=== PATIENT | female | born 1960 | race Caucasian/White ===

== ENCOUNTER → 2016-03-04 | Outpatient (CLI) | payer BC ==
--- NOTE | 2016-03-04 13:57 | RADRPT ---
PROCEDURE: XR bilateral knees. CLINICAL INDICATION: Knee pain TECHNIQUE: AP weightbearing, PA weightbearing, lateral weight bearing and sunrise views are availa ble for review. COMPARISON: None available FINDINGS: Right knee: There is severe osteoarthrosis involving the right medial tibial femoral compartment, moderate osteo arthrosis involving the patellofemoral compartment and mild osteoarthrosis involving the lateral tib io-femoral compartment. This is associated with joint space narrowing, subchondral sclerosis and ost eophytosis. Left knee: There is severe osteoarthrosis involving the left medial tibial femoral compartment, moderate osteoa rthrosis involving the patellofemoral compartment and mild osteoarthrosis involving the lateral tibi o-femoral compartment. This is associated with joint space narrowing, subchondral sclerosis and oste ophytosis. There is otherwise normal mineralization, architecture and alignment. No fractures are identified. No osseous lesions are identified. The soft tissues are unremarkable. IMPRESSION: Severe osteoarthrosis involving the right medial tibial femoral compartment, moderate osteoarthrosis involving the patellofemoral compartment and mild osteoarthrosis involving the lateral tibio-femora l compartment. Severe osteoarthrosis involving the left medial tibial femoral compartment, moderate osteoarthrosis involving the patellofemoral compartment and mild osteoarthrosis involving the lateral tibio-femoral compartment. RPTAT: HGDB .Chaz Godoy MD, Date Time Electronically viewed and signed by .Chaz Godoy MD, on 03/04/2016 13:57 .B/
== END | disposition home or self-care (01) ==
LOC: HKI 13:33
PROVIDERS: ATTEND Orthopaedic Surgery
DX: M17.0 Bilateral primary osteoarthritis of knee (principal); M25.561 Pain in right knee; M25.562 Pain in left knee
CPT/HCPCS: 73564; G0463

== ENCOUNTER → 2016-03-28 | Outpatient (CLI) | payer BC ==
--- NOTE | 2016-03-29 05:57 | HKNOTE ---
DATE OF SERVICE: 03/28/2016 INTERVAL HISTORY: The patient presents today for a followup evaluation on her right knee. She is complaining of a soreness to the right knee, predominantly after exercising and training her dogs. She denies any recurrent fall or injury. She would like to proceed with an Orthovisc injection and is here today for her first injection. PHYSICAL EXAMINATION: On exam today she is alert and oriented x4, and in no acute distress. She walks with an antalgic gait. Exam of the right knee demonstrates ROM to be 10-110 degrees. She is unable to fully straighten the knee. She does have 2+ patellofemoral crepitus. Varus and valgus forces are stable. There is no effusion. Compartments are soft. No erythema or warmth noted. She is neurovascularly intact distally. IMAGING: None done today. ASSESSMENT: Right knee osteoarthritis. PLAN: 1. Orthovisc injection #1 given today to the right knee. 2. Tylenol as needed for pain. 3. She inquired about physical therapy. I advised her she should hold off until she finishes her Orthovisc series. 4. Follow up next week for her second injection. PROCEDURE NOTE: The procedure was fully explained to the patient. Informed consent was obtained prior to the start of the procedure. The area was prepped and draped in sterile fashion using betadine. The skin was anesthetized with ethyl chloride and a 22 gauge needle was injected into the superiolateral aspect of the right knee and 2 mL of Orthovisc was injected. A sterile dressing was applied. The patient tolerated the procedure well. All questions and concerns were addressed at the time of the procedure. Dictated By: CESAR HERNANDEZ/LISA Conf#: [id number] DID#: [id number] LUIS ANTONIO
== END | disposition home or self-care (01) ==
LOC: HKI 08:51
PROVIDERS: ATTEND Orthopaedic Surgery
DX: M17.11 Unilateral primary osteoarthritis, right knee (principal)
CPT/HCPCS: 20610; G0463

== ENCOUNTER → 2016-04-04 | Outpatient (CLI) | payer BC ==
--- NOTE | 2016-04-04 22:09 | HKNOTE ---
DATE OF SERVICE: 04/04/2016 INTERVAL HISTORY: The patient presents today for a followup evaluation on her right knee. She is also requesting an Orthovisc injection to her left knee. She had no adverse reactions from the first injection. She denies any fever or chills. No erythema or warmth. She has not felt much improvement at this point yet, however, tolerated the injection well. She presents today for her second Orthovisc injection to her right knee and first Orthovisc injection to her left knee. PHYSICAL EXAMINATION: On exam today she is alert and oriented x4, in no acute distress. Exam of bilateral knees demonstrates no erythema or warmth. There are no effusions. Varus and valgus forces are stable. There is minimal soft tissue swelling. Neurovascular status is intact distally. IMAGING: None done today. ASSESSMENT: Bilateral knee osteoarthritis. PLAN: The patient had her second Orthovisc injection to her right knee done today. Additionally, she began the left knee series today and underwent her first left knee injection. She tolerated the procedure well. She will follow up next week for another series of injections. I advised the patient to ice the knees and modify her activity today. PROCEDURE NOTE: The procedure was fully explained to the patient and informed consent was obtained prior to the start of the procedure. The knees were prepped and draped in sterile fashion using betadine. The skin was anesthetized using ethyl chloride and a 22-guage needle was injected into the superolateral aspect of the right and left knees. Then 2 mL of Orthovisc was injected into both knees. Sterile dressing was then applied. The patient tolerated the procedure well. All questions and concerns were addressed at the time of the procedure. Dictated By: CESAR HERNANDEZ/LISA Conf#: [id number] DID#: [id number] MTDD
== END | disposition home or self-care (01) ==
LOC: HKI 08:54
PROVIDERS: ATTEND Orthopaedic Surgery
DX: M17.0 Bilateral primary osteoarthritis of knee (principal)
CPT/HCPCS: 20610; G0463

== ENCOUNTER → 2016-04-11 | Outpatient (CLI) | payer BC ==
--- NOTE | 2016-04-12 03:48 | HKNOTE ---
DATE OF SERVICE: 04/11/2016 INTERVAL HISTORY: The patient presents today for followup evaluation on her bilateral knees. Last week she underwent her second Orthovisc injection to her right knee and first Orthovisc injection to her left knee. She had no adverse events. She does have some soreness after the injections, but it does resolve spontaneously. She denies any erythema or warmth, fevers or chills. She presents today for her next series of injections. PHYSICAL EXAMINATION: The patient is alert and oriented x4 and in no acute distress. She is walking with a slight antalgic gait. Bilateral knees demonstrate no effusions. Varus and valgus forces are stable. There is no erythema or warmth. Compartments are soft. She is neurovascularly intact distally. ASSESSMENT: Bilateral knee osteoarthritis. PLAN: 1. Right knee third Orthovisc injection given today. 2. Left knee second Orthovisc injection given today. 3. Follow up next week for her final left knee injection. PROCEDURE NOTE: The procedure was fully explained to the patient, and informed consent was obtained prior to the start procedure. Both knees were prepped and draped in sterile fashion using Betadine. The skin was anesthetized using ethyl chloride. A 22 gauge needle was inserted into the superolateral aspect of the right and left knees. Then 2 mL of Orthovisc was injected into both knees. Sterile dressings were applied. The patient tolerated the procedure well. All questions and concerns were addressed at the time of procedure. Dictated By: CESAR HERNANDEZ/LISA Conf#: [id number] DID#: [id number] [facility] HOSPITALJuliette
== END | disposition home or self-care (01) ==
LOC: HKI 08:53
PROVIDERS: ATTEND Orthopaedic Surgery
DX: M17.0 Bilateral primary osteoarthritis of knee (principal)
CPT/HCPCS: 20610; J7324

== ENCOUNTER → 2016-04-18 | Outpatient (CLI) | payer BC ==
--- NOTE | 2016-04-18 20:14 | HKNOTE ---
DATE OF SERVICE: 04/18/2016 INTERVAL HISTORY: The patient presents today for a followup visit on her bilateral knees. Her knees symptomatically are doing better overall. She has completed the 3 series of Orthovisc to her right knee and is here today for her last left knee injection. She denies any adverse reactions. Denies any fevers or chills. She presents today for her last left knee injection. PHYSICAL EXAMINATION: GENERAL: Today, the patient is alert and oriented x4, and in no acute distress. She walks with a slight antalgic gait. EXTREMITIES: Left knee demonstrates no erythema, warmth, or effusion. There is some 2+ patellofemoral crepitus. Varus and valgus forces are stable. There is no effusion. Compartments are otherwise soft. She is neurovascularly intact distally. ASSESSMENT: Left knee osteoarthritis. DISCUSSION: The patient underwent a left knee Orthovisc #3 injection today. She tolerated the procedure well. She was advised to take anti-inflammatories and ice the area as needed. We will see her back on an as needed basis. If she has any questions or concerns, she will call the office or come in for a followup evaluation. If she desires to proceed with any sort of surgical intervention, she will call us at that time as well. PROCEDURE NOTE: The procedure was fully explained to the patient and informed consent was obtained prior to the start procedure. Left knee was prepped and draped in sterile fashion using Betadine. The skin was anesthetized using ethyl chloride. A 22 gauge needle was inserted into the superolateral aspect of the left knee and 2 mL of Orthovisc was injected. Sterile dressings were applied. The patient tolerated the procedure well. All questions and concerns were addressed at the time of procedure. Dictated By: CESAR HERNANDEZ/LISA Conf#: [id number] DID#: [id number] LUIS ANTONIO
== END | disposition home or self-care (01) ==
LOC: HKI 09:13
PROVIDERS: ATTEND Orthopaedic Surgery
DX: M17.12 Unilateral primary osteoarthritis, left knee (principal)
CPT/HCPCS: 20610; J7324